=== PATIENT | female | born 1995 | race Caucasian/White ===

== ENCOUNTER 2022-08-28 05:55 | Inpatient (IN) | payer BC ==
[2022-08-28] MEDS ORDERED: METHYLERGONOVINE 0.2 MG/ML 1 ML AMP IM PRN (06:14)
[2022-08-28] MEDS ORDERED: miSOPROStoL 200 MCG TAB PO PRN (06:14)
[2022-08-28] MEDS ORDERED: CARBOPROST TROMETHAMINE 250 MCG/ML 1 ML AMP IM PRN (06:14)
[2022-08-28] MEDS ORDERED: OXYTOCIN 10 UNIT/ML 1 ML VIAL IM PRN (06:14)
[2022-08-28] MEDS ORDERED: TRANEXAMIC ACID IN NACL,ISO-OS 1,000 MG in EMPTY BAG 1 BAG IV PRN (06:14)
[2022-08-28] MEDS ORDERED: TERBUTALINE 1 MG/ML VIAL SQ PRN (06:14)
[2022-08-28] MEDS ORDERED: LIDOCAINE 0.5% (PF) 5 MG/ML (50 ML SDV) SQ PRN (06:14)
[2022-08-28] MEDS ORDERED: OXYTOCIN 30 UNITS/500 ML NS 30 UNIT in SALINE 1 500ML.BAG IV SCH (06:15)
[2022-08-28 06:19] VITALS: RESP 16
[2022-08-28] MEDS: LACTATED RINGERS 1,000 ML IV SCH ×2 (06:30→19:29)
[2022-08-28 06:50] LABS: Basophils % (A) 0 %; Eosinophils # (A) 0.1 k/uL (0-0.7); Eosinophils % (A) 1 %; HCT 37.9 % (34.0-46.0); HGB 12.8 gm/dL (11.4-16.0); Lymphocytes # (A) 1.4 k/uL (1.0-4.8); Lymphocytes % (A) 16 %; MCHC 33.7 g/dL (31.0-37.0); MCV 88.9 fL (80.0-100.0); Mean Platelet Volume 8.5; Monocytes # (A) 0.5 k/uL (0-1.0); Monocytes % (A) 6 %; Neutrophils # (A) 6.5 k/uL (1.3-7.7); Neutrophils % (A) 75 %; Platelet Count 136 k/uL (150-450); RBC 4.26 m/uL (3.80-5.40); RDW 13.7 % (11.5-15.5); WBC 8.7 k/uL (3.8-10.6)
--- NOTE | 2022-08-28 07:49 | P.HPOB ---
History of Present Illness H&P Date: 08/28/22 Chief Complaint: Here for elective induction of labor This is a 26-year-old female 2 para 1001 EDC 09/04/2022 at 39 weeks gestation who presents with favorable multiparous cervix for induction. She is having mild uterine contractions. She denies fluid leakage or vaginal bleeding. Current medications baby aspirin daily, vitamin daily. Past medical history is negative. Past surgical history is unremarkable. ALLERGIES none known. Social history patient is single, father of the baby is present. She states, but is trying to quit. No alcohol tobacco or drug use. history is significant for blood type B+ rubella status immune. VDRL testing, urine culture, hepatitis B surface antigen, HIV testing, gonorrhea and chlamydia cultures, group B strep cultures all negative. One-hour Glucola 121. On exam patient is 5 foot 3 inches, 198 pounds, blood pressure 127/69. The general physical exam is within normal limits. Cervix is 5 cm dilated, 70% effaced, -2 station, vertex presentation, soft, anterior. Artificial amniorrhexis reveals clear fluid. heart rate is consistent with reactive NST. Impression: 39 week intrauterine , favorable multiparous cervix, here for induction of labor. All signs reassuring. Plan: Oxytocin per hospital protocol. Analgesic options reviewed. Close maternal and surveillance. Anticipate normal spontaneous vaginal delivery. Review of Systems Constitutional: Reports as per HPI Past Medical History Past Medical History: No Reported History History of Any Multi-Drug Resistant Organisms: None Reported Past Surgical History: No Surgical Hx Reported Past Anesthesia/Blood Transfusion Reactions: No Reported Reaction Past Psychological History: No Psychological Hx Reported Smoking Status: Current every day smoker Past Alcohol Use History: None Reported Medications and Allergies Home Medications Medication Instructions Recorded Confirmed Type Vit No.179/Iron/Folic 08/28/22 History [ Tablet] Allergies Allergy/AdvReac Type Severity Reaction Status Date / Time No Known Allergies Allergy Verified 08/28/22 06:13 Exam Vital Signs Temp Pulse Resp BP Pulse Ox 08/28/22 06:12 98.2 F 93 16 127/69 97 Intake and Output 08/27/22 08/28/22 08/28/22 22:59 06:59 14:59 Other: Weight 89.811 kg See dictation under HPI please Results Result Diagrams: 08/28/22 06:40 Abnormal Lab Results - Last 24 Hours (Table) 08/28/22 Range/Units 06:40 Plt Count 136 L (150-450) k/uL Assessment and Plan Assessment: 39 week intrauterine , favorable multiparous cervix, here for induction of labor. All signs reassuring. Plan: Oxytocin per hospital protocol. Close maternal and surveillance. Analgesic options reviewed. Anticipate normal spontaneous vaginal delivery. Time with Patient: Less than 30
--- NOTE | 2022-08-28 10:48 | P.PROBDLV ---
Vaginal Delivery Note - . Vaginal Delivery Note: This is a 26-year-old 2 para 1001 EDC 09/04/2022 at 39 weeks gestation who presented earlier this morning for induction with favorable multiparous cervix, negative group B strep cultures, blood type B positive, rubella status immune. Please see dictated history and physical for details. Artificial amniorrhexis revealed clear fluid. Oxytocin was started and titrated per hospital protocol. Epidural was offered and declined. Patient progressed well through the first stage of labor and became completely dilated at 1021 hrs. Perineal body was prepped and draped in usual sterile fashion. heart rate was Reassuring throughout first and second stages of labor. With excellent maternal expulsive efforts the 's head delivered in the occiput anterior position and restituted accordingly. There was a nuchal cord 1 that was reduced. After the left or anterior shoulder was delivered easily, the oropharynx, external nares, and nasopharynx were all bulb suctioned carefully. Patient was officially delivered of a liveborn male at 1034 h rs. Umbilical cord was doubly clamped and ligated, he was handed to waiting nurses for evaluation where scores of 9 and 9 at one and 5 minutes respectively were given. Uterus is then massaged. Placenta delivered manually, it was inspected and noted to be intact with trivascular cord at 1037 hrs. At this time the perineum, periurethral, perirectal, perineal areas were all carefully inspected along with the cervix. No lacerations or defects were noted. Total estimated blood loss 250 mL's. Infant weighs 3435 g or 7 lbs. 9 oz. Patient is requesting circumcision for her son.
[2022-08-28] MEDS ORDERED: LANOLIN CREAM 5 GM TUBE TOPICAL PRN (10:49)
[2022-08-28] MEDS ORDERED: diphenhydrAMINE 50 MG CAP PO PRN (10:49)
[2022-08-28] MEDS ORDERED: ZOLPIDEM 5 MG TAB PO PRN (10:49)
[2022-08-28] MEDS ORDERED: SIMETHICONE 80 MG CHEWABLE PO PRN (10:49)
[2022-08-28] MEDS ORDERED: HYDROCORTISONE 2.5% RECTAL CREAM 30 GM TUBE RECTAL PRN (10:49)
[2022-08-28] MEDS ORDERED: diphenhydrAMINE 50 MG/ML 1 ML VIAL IVP PRN ×2 (10:49)
[2022-08-28] MEDS ORDERED: diphenhydrAMINE 25 MG CAP PO PRN (10:49)
[2022-08-28] MEDS ORDERED: BENZOCAINE/MENTHOL SPRAY 1 GM/SPRAY AEROSOL TOPICAL PRN (10:49)
[2022-08-28] MEDS ORDERED: IBUPROFEN 600 MG TAB PO SCH (11:00)
[2022-08-28] MEDS: ACETAMINOPHEN TAB 325 MG TAB PO PRN ×2 (11:39→19:51)
[2022-08-28] MEDS: SENNOSIDES-DOCUSATE SODIUM 1 EACH TAB PO SCH (19:51)
[2022-08-29] MEDS: ACETAMINOPHEN TAB 325 MG TAB PO PRN (04:39)
[2022-08-29 07:58] VITALS: BP 105/67; PULSE 76; TEMP 98.4
--- NOTE | 2022-08-29 08:45 | P.PROBDLV ---
Vaginal Delivery Note - . Vaginal Delivery Note: This is a 26-year-old female 2 para 1001 EDC 09/04/2022 who presented yesterday for induction with favorable multiparous cervix. Rubella status immune, blood type B positive, group B strep cultures negative. Please see dictated history and physical for details. Artificial amniorrhexis revealed clear fluid and epidural was offered but declined. Oxytocin was started and titrated as appropriate. Patient went on to deliver spontaneously a liveborn male with scores of 9 and 9 at one and 5 minutes respectively. weighed 7 lbs. 9 oz. or 3435 g. There was a nuchal cord 1 that was reduced, no perineal lacerations, estimated blood loss 2 50 mL's. Please see my dictated delivery note for details. This morning the patient is doing well. She is voiding, ambulating passing flatus without difficulty. Vital signs are stable and she is afebrile. Breast- feeding is going well. She has minimal to moderate lochia rubra. Pain is alleviated by ibuprofen. She is judged to be in very good condition for discharge home. circumcision has been performed. Patient will follow-up with me in the office in 6 weeks. I have reminded her no intercourse, tampons or douching. She will use [id number] Advil or Aleve as needed for pain. She will call with any fevers shakes or chills, foul smelling or copious lochia, with the passage of large blood clots, or indeed with any difficulties or concerns. We have briefly discussed contraceptive options moving forward and we will confirm her choice in the office.
[2022-08-29] MEDS: SENNOSIDES-DOCUSATE SODIUM 1 EACH TAB PO SCH (11:45)
== END 2022-08-29 12:30 | disposition home or self-care (01) | DRG 807 ==
LOC: 4FBP 05:55
PROVIDERS: ADMIT Obstetrics & Gynecology; ATTEND Obstetrics & Gynecology
PROC: 10E0XZZ Delivery of Products of Conception, External Approach (ICD-10-PCS; principal; 2022-08-28)
PROC: 10907ZC Drainage of Amniotic Fluid, Therapeutic from Products of Conception, Via Natural or Artificial Opening (ICD-10-PCS; 2022-08-28)
PROC: 4A0HXCZ Measurement of Products of Conception, Cardiac Rate, External Approach (ICD-10-PCS; 2022-08-28)
PROC: 3E033VJ Introduction of Other Hormone into Peripheral Vein, Percutaneous Approach (ICD-10-PCS; 2022-08-28)
DX: O69.81X0 Labor and delivery complicated by cord around neck, without compression, not applicable or unspecified (principal); Z37.0 Single live birth; F17.210 Nicotine dependence, cigarettes, uncomplicated; O99.334 Smoking (tobacco) complicating childbirth; Z3A.39 39 weeks gestation of pregnancy; Z79.82 Long term (current) use of aspirin; Z88.6 Allergy status to analgesic agent
CPT/HCPCS: 85025; 86850; 86900; 86901